=== PATIENT | male | born 1955 | race Caucasian/White ===

== ENCOUNTER 2020-06-14 10:50 | Emergency (ER) | payer MEDICARE, SELFPAY ==
[2020-06-14 10:52] VITALS: BP 124/74; PULSE 66; RESP 15; TEMP 36.2; O2SAT 100; BMI 32.5
--- NOTE | 2020-06-14 11:04 | ED.VIS.GEN ---
History of Present Illness Chief Complaint: Ear Problem Informant: Patient Onset: Days - 2 days Context: Gradual Onset Timing: Continuous - pain Quality: pain Location: right ear Current Severity: Moderate Maximum Severity: Moderate Worsened by: nothing Relieved by: nothing Associated Symptoms: denies Narrative: 65-year-old male presents to the emergency department with pain in his right ear. He was using a chainsaw to cut wood 2 days ago. He is concerned a piece of wood got into his ear. He thinks he removed with a Q-tip but is having a little bit of blood from his ear and is concerned for infection versus retained foreign body. No tinnitus or decreased hearing. No trauma. No fevers. Rest of his review of systems at this time are negative. Prior similar symptoms: No Recent Illness/Hospitalization: No Past Medical History - Allergies and Home Meds Allergies/Adverse Reactions: Allergies morphine Allergy (Verified 06/14/20 10:51) Vomiting nifedipine [From Procardia] Allergy (Verified 06/14/20 10:51) NEEDS FOLLOW-UP Primary Care Physician: Enid Armas,Out of [Primary Care Provider] - Prior records reviewed: Yes Past Medical History: None Surgical History: noncontributory Lives: With Family Smoking Status: Never smoker Alcohol: Occasional Drugs: None Review of Systems All systems negative except as indicated General: Denies: Chills, Fever, Sweats Eyes: Denies: Visual changes - bilaterally, Diplopia ENT: Reports: Right ear pain. Denies: Rhinorrhea, Sore throat Cardiovascular: Denies: Chest pain, Palpitations Respiratory: Denies: Dyspnea, Cough, Dyspnea on exertion Gastrointestinal: Denies: Abdominal pain, Nausea, Vomiting, Diarrhea, Melena, Hematochezia Genitourinary: Denies: Dysuria, Hematuria, Frequency Musculoskeletal: Denies: Back pain, Extremity Pain Skin: Denies: Rash, Wounds Neurological: Denies: Headache, Weakness, Numbness Physical Exam Vital Signs/Narrative: Vital Signs Temp Pulse Resp BP Pulse Ox 06/14/20 10:52 97.2 F L 66 15 124/74 H 100 Inital Vital Signs reviewed: Yes General: Well nourished, Well developed, No Acute Distress Head: Normocephalic, Atraumatic Eyes: Perrl, EOMI ENT: Moist mucous membranes, No rhinorrhea, - - No pain with movement of right tragus. Tympanic membrane right ear is normal there is no redness bulging or perforation. There is some dried blood in his external ear canal with a small abrasion. No foreign bodies are noted. Normal inspection of left ear, left ear canals normal left tympanic membrane is normal no pain with movement of tragus left ear. Neck: Supple, Nontender Cardiovascular: Regular rate, Regular rhythm, No murmurs Respiratory: No distress, CTA bilaterally, Chest nontender Abdomen: Soft, Nontender, Nondistended, Normal bowel sounds Back: Nontender, Normal Inspection Extremities: Nontender, No edema Skin: Normal color, No rash Neurological: Alert, Oriented x3, Cranial nerves II-XII grossly intact, Normal Strength, Normal Sensation Psychological: Normal affect, Normal Mood Diagnostic/Tx/Re-eval - Medical Decision Making Tympanic membrane right ear normal and intact. He has some dried blood with a small abrasion there is no foreign body noted and at this time there are no signs of infection. His hearing is within normal limits. Woke with on-call ENT Dr. Zhong , recommended ofloxacin eardrops and having follow-up in his office early next week. Patient agreeable with plan all questions answered discharge ED Disposition - Plan for ED Patient: Disposition: Home or Assisted Living Instructions: ED Otitis Externa Prescriptions: Amox/Clavulanate Tablet [Augmentin Tablet] 875 mg PO Q12H #10 tab Transmission Status: Pending to [id number] Ofloxacin 0.3% [Floxin 0.3% Otic] 5 drp OTIC (EAR) BID #1 bottle Transmission Status: Pending to [id number] Referrals: Stevie Zhong MD [STAFF PHYSICIAN] - 3-5 Days
--- NOTE | 2020-06-14 11:38 | ED.VISSUMM ---
- ER Visit Summary Date of Service: 06/14/20 Chief Complaint: [Physician note addendum to note by physician litigation legal assistant Vikas Ma] History of Present Illness: The patient is a 65 M [presents to the emergency department with right ear pain. Patient states that 2 days ago he was using a chainsaw overhead and thinks he may have gotten a piece of wood stuck in his ear. Patient region with his finger and try to remove it. He is not sure if he drove the piece of wood deeper into his ear. Is been having hard time sleeping secondary to pain. He had some blood noted from the ear. He did use a Q-tip at one point to dry out his ear. Denies any fevers or chills.] Physical Examination: [HEENT-PERRLA, EOMI. Cranial nerves II through XII grossly intact. TMs clear. Mucous membranes moist. No adenopathy. Right ear-patient's ear canal has what looks like Cardiovascular-regular rate and rhythm without murmur or ectopy Lungs-clear to auscultation, chest wall stable without crepitus or subcu emphysema Abdomen-normoactive bowel sounds, soft, nontender, no rebound or rigidity, no peritoneal signs. Extremities-intact ?4, normal range of motion, normal pulses, atraumatic] Test Results: [None indicated] Emergency Department Course and Treatment: [Patient was discussed with ENT physician on-call Dr. Stevie Ocampo who asked that we start patient on ofloxacin and follow-up with his office.] Treatment Plan: [Patient will follow-up with ENT and will be treated with Augmentin and ofloxacin.] Patient understand that imaging would not show any would type material. At this point I suspect he may just have an abrasion to the ear canal as I do not appreciate any foreign body. If symptoms do not improve he may need further diagnostic work-up and evaluation by ENT. Disposition: [Discharged home in stable condition] Impression: [Abrasion to right ear canal with cellulitis] This note was generated with [employer] dictation software. It may contain incorrect words, spelling, and punctuation that were not noted in review of the chart prior to signing ED Disposition - Plan for ED Patient: Disposition: Home or Assisted Living Instructions: ED Otitis Externa Prescriptions: Amox/Clavulanate Tablet [Augmentin Tablet] 875 mg PO Q12H #10 tab Transmission Status: Received by [id number] Ofloxacin 0.3% [Floxin 0.3% Otic] 5 drp OTIC (EAR) BID #1 bottle Transmission Status: Received by [id number] Referrals: Stevie Zhong MD [STAFF PHYSICIAN] - 3-5 Days
== END 2020-06-14 11:56 | disposition home or self-care (01) ==
PROVIDERS: Emergency Provider Physician Assistant Medical
DX: S00.411A Abrasion of right ear, initial encounter (principal); H60.11 Cellulitis of right external ear; X58.XXXA Exposure to other specified factors, initial encounter
CPT/HCPCS: 99282